=== PATIENT | male | born 1970 | race Caucasian/White ===

== ENCOUNTER 2021-08-18 18:07 | Emergency (ER) | payer OTHER, SELFPAY ==
--- NOTE | ~2021-08-18 | XR_ITS ---
EXAMINATION: XR hand LT min 3V DATE: 08/18/2021 18:29 INDICATION: Left hand injury and pain. TECHNIQUE: 3 views of left hand were obtained. COMPARISON: None. FINDINGS: Bone alignment is normal. No fracture. Joint spaces are well maintained. IMPRESSION: 1. No fracture. Reviewed, dictated and finalized at location A. IMPRESSION: 1. No fracture.
[2021-08-18 18:09] VITALS: PULSE 80; RESP 17; TEMP 36.6; O2SAT 100
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
[2021-08-18] MEDS: ceFAZolin SODIUM 1 GM VIAL IM (19:20)
[2021-08-18] MEDS: WATER, STERILE FOR INJECTION 10 ML VIAL XX (19:21)
[2021-08-18] MEDS: HYDROcodone/acetaminophen (*CRX) 5-325 MG TABLET 1 TAB PO (19:21)
== END 2021-08-18 19:23 | disposition home or self-care (01) ==
LOC: ANHED 19:05
PROVIDERS: Emergency Provider Emergency Medicine
DX: S61.432A Puncture wound without foreign body of left hand, initial encounter (principal); I10 Essential (primary) hypertension; W27.0XXA Contact with workbench tool, initial encounter
CPT/HCPCS: 73130; 96372; 99283; A9270; J0690

== ENCOUNTER 2024-10-03 08:37 | Emergency (ER) | payer BC, SELFPAY ==
--- NOTE | ~2024-10-03 | CT_ITS ---
EXAMINATION: CT cervical spine wo con DATE: 10/03/2024 10:40 INDICATION: Neck and shoulder pain. TECHNIQUE: Computed tomography (CT) of the cervical spine was performed without intravenous contrast. Automated exposure control and iterative reconstruction technique were employed. The dose-length pro duct was 510.11 mGy-cm. COMPARISON: None FINDINGS: There is kyphosis of cervical spine. There is 7 degrees levocurvature of cervicothoracic sp ine. Vertebral body heights are normal. There is mildly decreased disc height at C6-C7. The following disc levels are specifically discussed: C2-C3: There is no uncovertebral joint osteoarthritis. There is mild right facet joint osteoarthritis . There is no neural foraminal stenosis. There is no central canal stenosis. C3-C4: There is mild left uncovertebral joint osteoarthritis. There is no facet joint osteoarthritis. There is no neural foraminal stenosis. There is no central canal stenosis. C4-C5: There is no uncovertebral joint osteoarthritis. There is no facet joint osteoarthritis. There is no neural foraminal stenosis. There is no central canal stenosis. C5-C6: There is no uncovertebral joint osteoarthritis. There is no facet joint osteoarthritis. There is no neural foraminal stenosis. There is no central canal stenosis. C6-C7: There is no uncovertebral joint osteoarthritis. There is no facet joint osteoarthritis. There is no neural foraminal stenosis. There is no central canal stenosis. C7-T1: There is no uncovertebral joint osteoarthritis. There is moderate right and severe left facet joint osteoarthritis. There is mild left neural foraminal stenosis. There is no central canal stenosi s. IMPRESSION: 1. Mild cervical spondylosis. Reviewed, dictated and finalized at location A. T FINISHER
--- NOTE | ~2024-10-03 | CT_ITS ---
EXAMINATION: CT shoulder LT wo con DATE: 10/03/2024 10:40 INDICATION: Left shoulder pain. TECHNIQUE: Computed tomography (CT) of the left shoulder was performed without intravenous contrast. Automated exposure control and iterative reconstruction technique were employed. The dose-length prod uct was 291.54 mGy-cm. COMPARISON: Left shoulder radiographs 10/03/2024 FINDINGS: Bone alignment is normal. No fracture. There is severe osteoarthritis of acromioclavicular joint. Glenohumeral joint is normal. The rotator cuff muscle bellies are normal. IMPRESSION: 1. Severe osteoarthritis of acromioclavicular joint. Reviewed, dictated and finalized at location A. OSITION PROFESSOR
--- NOTE | ~2024-10-03 | XR_ITS ---
EXAMINATION: XR shoulder LT min 2V DATE: 10/03/2024 09:16 INDICATION: Left shoulder pain. TECHNIQUE: 4 views of left shoulder were obtained. COMPARISON: None. FINDINGS: Alignment is normal. No fracture. Joint is normal. There is moderate acromioclavicular join t osteoarthritis. IMPRESSION: 1. Moderate left acromioclavicular joint osteoarthritis. Reviewed, dictated and finalized at location A. TRIC DETECTOR OPERATOR
[2024-10-03 09:00] VITALS: BP 163/103; PULSE 80; RESP 20; TEMP 36.3; O2SAT 100
--- NOTE | 2024-10-03 09:50 | ED_ITS ---
HPI - Extremity Problem General Chief complaint: Extremity Problem,Nontraumatic Stated complaint: left shoulder pain Time Seen by Provider: 10/03/24 09:32 Source: patient Mode of arrival: ambulatory Limitations: no limitations History of Present Illness HPI Narrative: Ykili-nucy-brpwafmb male presents with acute onset shoulder pain. While he was shoveling snow he heard a pop in this shoulder. He has occasionally experiencing paresthesias throughout the arm. He was initially having is he feels that this might only because the pain in the shoulders radiating below proximally. He has been using ibuprofen for analgesia (200mg tablets x3 i.e. 600mg at 8pm and 2am). He denies any whitney chest pain although he state the muscles in his left anterior superior aspect of his chest are tight. No shortness of breath. Feels like he is having spasms. Patient states he has primary care provider. Previously saw orthopedic surgeon verses plastic surgeon (they were hand specialist) when he sustained an injury to his hand; does not follow routinely with them and does not recall their name. Related Data Home Medications Medication Instructions Recorded Confirmed hydrochlorothiazide 25 mg tablet 08/18/21 08/18/21 lisinopril 40 mg tablet 08/18/21 Allergies Allergy/AdvReac Type Severity Reaction Status Date / Time No Known Allergies Allergy Verified 10/04/24 15:51 [facility] Past Medical History Medical History (Updated 10/05/24 @ 11:00 by Mavis Sifuentes MD) History of hypertension History of open hand wound Right hand dominant Social History Social History (Updated 10/04/24 @ 15:57 by Beverley Salazar MA) Smoking status: Current every day smoker Tobacco type: cigarettes Alcohol intake: current Substance use: never Substance use type: does not use Living arrangements: with family Occupation/Education: occupation 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 HEAD: Normocephalic, atraumatic. EYES: Non injected, non icteric ENT: Nares clear, no rhinorrhea or epistaxis. NECK: Supple. CHEST: Speaking in full sentences. No respiratory distress. HEART: Regular rate and rhythm. . ABDOMEN: Soft, nondistended. EXTREMITIES: Normal range of motion. No Upper extremity edema. patient is able to perform general range of motion activities although experiences pain. 5/5 strength with shoulder abduction. Patient has pain with Neer's testing on the left. patient able to perform [place] lift-off test on the right but very limited on the left. SKIN: Warm, dry, no rash. NEURO: No focal deficits. Alert and oriented x3. Sensation intact throughout including over deltoid. PSYCH: Normal mood and affect. Course Vital Signs Vital signs: Vital Signs Temperature 97.4 F L 10/03/24 09:00 Pulse Rate 80 10/03/24 09:00 Respiratory Rate 20 10/03/24 09:00 Blood Pressure 163/103 H 10/03/24 09:00 Pulse Oximetry 100 10/03/24 09:00 Temperature 97.4 F L 10/03/24 09:00 Pulse Rate 80 10/03/24 12:02 Respiratory Rate 16 10/03/24 12:02 Blood Pressure 130/75 10/03/24 12:02 Pulse Oximetry 98 10/03/24 12:02 MDM - Extremity (Nontraumatic) MDM Narrative Medical decision making narrative: Rhfno-ourz-bcexpnkm male presents with acute onset left shoulder pain he heard a pop while shoveling snow. In the emergency department he is afebrile with vital signs notable for hypert ension. Based on patient's slight limitations in range of motion and with particular provocative activities, I do suspect that he probably has rotator cuff pathology. Patient given analgesic medication in the ED and imaging obtained. Discussed high suspicion of rotator cuff injury with patient. For breakthrough pain, patient is prescribed opiates. We discussed the risks and benefits and that this is to be used to supplement alternative /additional analgesic medications which have also been prescribed. State prescription monitoring program is reviewed and does not show any fill of controlled substances other than testosterone. Provided that someone and instructions on shoulder exercises as well as given referral/contact information for Orthopedic surgery. DIscharged in stable condition. Differential Diagnosis Differential diagnosis: Likely other (fracture/dislocation; rotator cuff tear/injury; brachial plexus injury; screening EKG for ACS) Imaging Data Radiologist's impression: IMPRESSION: 1. Moderate left acromioclavicular joint osteoarthritis. IMPRESSION: 1. Mild cervical spondylosis. IMPRESSION: 1. Severe osteoarthritis of acromioclavicular joint. ECG Data EKG #1: Attestation EKG: I personally reviewed and interpreted this ECG as follows: ECG completion date: 10/03/24 ECG completion time: 10:49 Prior ECG tracings: not available for review ( No prior in EMR) Interpretation: Sinus rhythm at a rate of 63 beats per minute. DC interval 159. QRS 102. QT/QTC 371/379. Good R-wave progression across the precordial leads. T-wave inversion in lead 3 but otherwise upright in contiguous inferior leads 2 and AVF. No other T-wave inversions. There is questionable elevation in V3 though this likely represents early takeoff from the ST segment rather than whitney elevation Discharge Plan Discharge Clinical Impression: Arthritis of left acromioclavicular joint, Acute pain of left shoulder, Cervica l spondylosis Patient Disposition: Home, Self-Care Condition: Stable Instructions: Antibiotic Form, Rotator Cuff Injury (ED), How to Use a Sling (ED), Narcotic Safety (ED), P.R.I.C.E. Treatment (ED), Arthritis (ED), Rotator Cuff Injury Exercises (DC) Additional Instructions: As we discussed, I believe you might have a rotator cuff injury/tear. Acetaminophen/Tylenol (maximum 4000 mg per day) is safe to take with NSAIDs (ibuprofen/Motrin) for pain relief. For breakthrough pain, short course of opiate/ narcotic medications have also been prescribed. Remember that each of these contain 325mg acetaminophen so take that into account so as to not accidentally overdise. Shoulder Exercises (in addition to the others provided in discharge instructions) +Pendulum swings Patient bends slightly at waist with arm hanging freely in front of body Arms should be swung in gentle arcs of motion both clockwise and counter- clockwise Swing to level of pain tolerance x 5-10min three to four times per day +Walk fingers up wall Stand sideways an arm's length from wall and walk fingers up wall to level of pain tolerance three to four times per day The sling is to help to offload some of the pain and pressure but you are to continue to perform [id number] exercises and balance rest with movement. you can continue to use ice for the next 24-48 hours at which time you can switch to heat if desired. Follow-up with primary care provider as you may require additional imaging, alternative pain management strategy, exercises, physical therapy, injections, etc. follow-up with orthopedic surgery within 1 week if not improving. the name of a doctor is listed below. Prescriptions: New acetaminophen 500 mg capsule 1,000 mg PO Q6H PRN (Reason: pain) Qty: 30 0RF ibuprofen 600 mg tablet 600 mg PO TID PRN (Reason: pain) Qty: 30 0RF hydrocodone-acetaminophen 5-325 mg tablet 1 tablet PO Q8H PRN (Reason: pain) Qty: 20 0RF No Action hydrochlorothiazide 25 mg tablet lisinopril 40 mg tablet cephalexin 500 mg capsule 500 mg PO Q8H 5 Days Qty: 15 0RF Follow-up/Referrals: Desean Hopper MD [Physician] - ( Orthopedics) PHYSICIAN NOT ON STAFF,NONSTAFF [Primary Care Provider] - Stand Alone Forms: Work/School Release IP Time of Disposition: 11:44
--- NOTE | 2024-10-03 09:58 | ECG_ITS ---
Test Date: 2024-10-03 10:49:27 Measurements Intervals [place] Rate: 63 P: 53 ME: 159 QRS: 48 QRSD: 102 T: 37 QT: 371 QTc: 382 Interpretive Statements SINUS RHYTHM No previous ECG available for comparison Electronically Signed On 10-03-2024 12:17:35 GLOBAL CLINICAL LEADER by Armando Rodriguez M.D.
[2024-10-03] MEDS: ACETAMINOPHEN 325 MG TABLET 650 MG PO (10:22)
[2024-10-03] MEDS: HYDROcodone/acetaminophen (*CRX) 5-325 MG TABLET 1 TAB PO (10:22)
[2024-10-03 11:05] VITALS: BP 125/87; PULSE 68; RESP 16; O2SAT 98
--- NOTE | 2024-10-03 12:00 | PC.NURSE ---
Ice pack not applied. Pt refused stating that he has an ice pack to use at home.
[2024-10-03 12:02] VITALS: BP 130/75; PULSE 80; RESP 16; O2SAT 98
== END 2024-10-03 12:04 | disposition home or self-care (01) ==
PROVIDERS: Emergency Provider Student in an Organized Health Care Education/Training Program
DX: M25.512 Pain in left shoulder (principal); M47.812 Spondylosis without myelopathy or radiculopathy, cervical region; I10 Essential (primary) hypertension; F17.210 Nicotine dependence, cigarettes, uncomplicated; M19.012 Primary osteoarthritis, left shoulder
CPT/HCPCS: 72125; 73030; 73200; 93005; 99284; A4565; A9270

== ENCOUNTER 2024-10-14 13:16 | Outpatient (CLI) | payer BC, SELFPAY ==
--- NOTE | ~2024-10-14 | MR_ITS ---
EXAMINATION: MR shoulder LT wo con DATE: 10/14/2024 14:03 INDICATION: Unspecified injury of left shoulder. Left shoulder pain. TECHNIQUE: Magnetic resonance imaging (MRI) of the left shoulder was performed without intravenous co ntrast. Sequences included axial PD-weighted FS FSE, coronal oblique PD-weighted FS FSE and T2-weight ed FS FSE, and sagittal oblique T2-weighted FS FSE and T1-weighted FSE. COMPARISON: CT 10/03/2024, radiographs 10/03/2024 FINDINGS: Coracoacromial arch: The acromion undersurface is curved in morphology (type II). There is severe acromioclavicular joint osteoarthritis. There is a physiologic volume of fluid in subacromial/subdeltoid bursa. Rotator cuff: There is mild supraspinatus tendinopathy and moderate infraspinatus tendinopathy. Teres minor tendon is normal. Subscapularis tendon is normal. There is no asymmetric fatty atrophy of the rotator cuff m uscle bellies. Biceps tendon and glenoid labrum: Biceps tendon is in bicipital groove. Intra-articular biceps tendon is normal. The glenoid labrum is normal. There is a 13 x 8 x 4 mm ganglion cyst adjacent to the posterior superior labrum. Fluid: There is no glenohumeral joint effusion. Bones/cartilage: There is a 14 mm lesion of increased T2-weighted signal intensity in humeral head with chondroid matr ix, likely an enchondroma. Glenoid cartilage is normal. Humeral head cartilage is normal. IMPRESSION: 1. Moderate rotator cuff tendinopathy. No tear. 2. Severe acromioclavicular joint osteoarthritis. 3. Paralabral cyst. No labral tear identified. Reviewed, dictated and finalized at location A. ICE STATION OPERATOR
== END 2024-10-14 13:17 | disposition home or self-care (01) ==
LOC: MICIMG 13:20
PROVIDERS: PCP Chiropractor; Visit Provider Orthopaedic Surgery
DX: M75.32 Calcific tendinitis of left shoulder (principal); M19.012 Primary osteoarthritis, left shoulder; S43.432A Superior glenoid labrum lesion of left shoulder, initial encounter; X58.XXXA Exposure to other specified factors, initial encounter
CPT/HCPCS: 73221

== ENCOUNTER 2024-10-18 11:11 | Outpatient (CLI) | payer BC, SELFPAY ==
--- NOTE | ~2024-10-18 | XR_ITS ---
XR scapula LT Ordering provider: Anabell Brown, [place] History: . Thoracic left scapula pain d/t trauma . Comparison: None. FINDINGS: BONES: No acute fracture or dislocation. JOINT SPACES: The acromioclavicular joint is normal. The glenohumeral joint is normal. SOFT TISSUES: Normal. IMPRESSION: No acute osseous abnormality left scapula.. Still suspicious CT is advised. Reviewed, dictated and finalized at location A. GHT BRAKEMAN
--- NOTE | ~2024-10-18 | XR_ITS ---
3 VIEWS THORACIC SPINE Ordering provider: Anabell Brown, DC History: . Thoracic left scapula pain d/t trauma . Comparison: None. FINDINGS: VERTEBRAL BODIES: Slight loss of height is seen in T9 and T8 which is most likely chronic. If still s uspicious MRI is advised. Otherwise Normal height and alignment. DISK SPACES: Normal. SOFT TISSUES: Normal. IMPRESSION: Possible slight loss of height of T8 and T9 most likely chronic. Clinical correlation and if warrante d MRI is advised. Reviewed, dictated and finalized at location A. D IDENTIFICATION SPECIALIST IMPRESSION: Possible slight loss of height of T8 and T9 most likely chronic. Clinical corre lation and if warranted MRI is advised.
== END 2024-10-18 11:12 | disposition home or self-care (01) ==
LOC: MICIMG 11:12
PROVIDERS: PCP Chiropractor; Visit Provider Chiropractor
DX: M25.512 Pain in left shoulder (principal)
CPT/HCPCS: 72070; 73010